=== PATIENT | female | born 1950 | race Caucasian/White ===

== ENCOUNTER 2019-01-10 12:11 | Emergency (ER) | payer MEDICARE ==
[2019-01-10] MEDS ORDERED: Nitroglycerin 50 MG/250 ML BOT 250 ML ONE (12:27)
[2019-01-10 12:35] LABS: #Basophils 0.1 thou/uL (0.0-0.2); #Eosinphils 0.3 thou/uL (0.0-0.7); #Lymphocytes 2.6 thou/uL (1.20-3.40); #Monocytes 0.5 thou/uL (0.11-0.59); #Neutrophils 3.1 thou/uL (1.40-6.50); %Basophils 1.3 % (0.0-1.0); %Eosinophils 4.1 % (0.0-10.0); %Lymphocytes 40.3 % (21.0-51.0); %Monocytes 7.3 % (0.0-10.0); %Neutrophils 46.9 % (42.0-75.0); Hemoglobin 16.3 g/dL (12.0-16.0); Mean Corpuscular HGB CONC 33.9 g/dL (32.0-36.0); Mean Corpuscular Volume 97.3 fL (78.0-98.0); Platelet Count 128 thou/uL (130-400); RBC Distribution Width 13.5 % (11.5-14.5); Red Blood Cell (RBC) Count 4.94 mill/uL (4.20-5.40); White Blood Cell (WBC) Count 6.5 thou/uL (4.8-10.8)
[2019-01-10] MEDS ORDERED: Aspirin Chewable 81 MG TAB ONE (12:40)
[2019-01-10] MEDS ORDERED: diphenhydrAMINE 50 MG/ML VIAL ONE (12:40)
[2019-01-10] MEDS ORDERED: Fentanyl 100 MCG/2 ML VIAL ONE (12:40)
[2019-01-10 12:52] LABS: ALT (SGPT) 27 U/L (8-55); AST (SGOT) 35 U/L (5-34); Albumin 3.7 g/dL (3.4-4.8); Alkaline Phosphatase 95 U/L (40-150); Anion Gap 11 mmol/L (10-20); BUN (Urea Nitrogen) 16 mg/dL (9.8-20.1); Bilirubin, Total 0.6 mg/dL (0.2-1.2); Calc. Creatinine Clearance 0 mL/min (70-130); Calcium 9.3 mg/dL (7.8-10.44); Carbon Dioxide 25 mmol/L (23-31); Chloride 110 mmol/L (98-107); Estimated GFR-MDRD 49; Globulin 3.2 g/dL (2.4-3.5); Glucose 84 mg/dL (80-115); Lipase 76 U/L (8-78); Protein, Total 6.9 g/dL (6.0-8.3); Sodium 142 mmol/L (136-145)
[2019-01-10] MEDS ORDERED: Heparin 25,000 units/D5W 500 ML ONE (13:45)
[2019-01-10] MEDS ORDERED: Heparin 5,000 UNITS/ML VIAL ONE (13:45)
[2019-01-10 13:56] LABS: PTT 28.1 SEC (22.9-36.1); Prothrombin Time 12.9 SEC (12.0-14.7)
--- NOTE | 2019-01-10 18:53 | CT ---
CT AORTIC DISSECTION PROTOCOL 01/10/19 CT of the chest and abdomen was done to display the entire aorta. Contrast was withheld due to a jeannette re allergy to iodine. Axial slices were initially acquired. Then coronal and sagittal reconstructions were done. The scans cover an area from the apices of the lungs through the bifurcation of the aorta into the upper pelvis. There is an infrarenal abdominal aortic aneurysm. It starts just below the level of the renal arterie s and extends to the bifurcation. It is 4 cm in maximal AP diameter. There is no evidence of leakage. No free fluid was seen in the abdomen. The thoracic part of the aorta appears normal. The CT thorax portion of this exam shows no dilation of the thoracic aorta. There is some faint calci fication in the patient's LAD. No pericardial fluid was seen. There is no mediastinal mass or adenopa thy. No pulmonary infiltrate or effusion was seen. The abdominal part of the CT shows the liver, spleen, pancreas, and kidneys to show no acute finding within the limitations of a noncontrast study. There is a curious 3.4 cm ovoid density adjacent to an d above the left adrenal gland and medial to the spleen. It is difficult to tell its origin, but it m ay actually be an ectopic piece of splenic tissue rather than attached to the adrenal gland. Given it s smooth nature, I fell its significance is probably low. The patient's gallbladder is rather large m easuring 9.5 cm in length. No stones, wall thickening, or inflammatory change was seen around it. The bowel was unremarkable. There was no sign of bowel distention, inflammatory change or wall thicke markie. No free air or free fluid was seen. CT goes into the upper pelvis but not the deep pelvis. Ther e were no abnormalities of concern in the area scanned. IMPRESSION: 1. 4 cm infrarenal abdominal aortic aneurysm with no sign of leakage. 2. No acute thoracic changes. No evidence of aortic disease elsewhere or aortic dilation elsewhe re. 3. Some calcification in the LAD. 4. Enlargement of the gallbladder which may or may not be significant. Findings discussed with Dr. Laboy at 1310 on 01/10/19. POS: HOME
== END 2019-01-10 14:59 | disposition short-term general hospital (02) ==
LOC: BURERS 12:11
DX: I24.9 Acute ischemic heart disease, unspecified (principal); I10 Essential (primary) hypertension; R79.89 Other specified abnormal findings of blood chemistry; E66.9 Obesity, unspecified; F32.9 Major depressive disorder, single episode, unspecified; F17.210 Nicotine dependence, cigarettes, uncomplicated; Z79.899 Other long term (current) drug therapy
CPT/HCPCS: 71250; 74150; 80053; 83690; 84484; 85025; 85379; 85610; 85730; 93005; 94760; 96365; 96366; 96368; 96375; J1200; J1644; J3010

== ENCOUNTER 2019-02-14 09:09 | Emergency (ER) | payer MEDICARE | END 2019-02-14 10:06 | disposition home or self-care (01) | LOC: BURERS 09:09 | DX: L02.214 Cutaneous abscess of groin (principal); I10 Essential (primary) hypertension; E66.9 Obesity, unspecified; I34.1 Nonrheumatic mitral (valve) prolapse; J45.909 Unspecified asthma, uncomplicated; F17.210 Nicotine dependence, cigarettes, uncomplicated; F32.9 Major depressive disorder, single episode, unspecified; Z79.899 Other long term (current) drug therapy | CPT/HCPCS: 99282 ==

== ENCOUNTER 2019-09-30 09:04 | Emergency (ER) | payer MEDICARE ==
[2019-09-30 09:54] LABS: INR-International Normal Ratio 1.1
[2019-09-30 09:55] LABS: PTT 36.1 SEC (22.9-36.1)
[2019-09-30 10:05] LABS: ALT (SGPT) 28 U/L (8-55); AST (SGOT) 26 U/L (5-34); Albumin 3.3 g/dL (3.4-4.8); Alkaline Phosphatase 144 U/L (40-110); Anion Gap 14 mmol/L (10-20); BUN (Urea Nitrogen) 9 mg/dL (9.8-20.1); Bilirubin, Total 0.8 mg/dL (0.2-1.2); Calc. Creatinine Clearance 0 mL/min (70-130); Calcium 9.1 mg/dL (7.8-10.44); Carbon Dioxide 24 mmol/L (23-31); Chloride 105 mmol/L (98-107); Estimated GFR-MDRD 52; Globulin 3.5 g/dL (2.4-3.5); Glucose 124 mg/dL (80-115); Lipase 39 U/L (8-78); Potassium 3.3 mmol/L (3.5-5.1); Protein, Total 6.8 g/dL (6.0-8.3); Sodium 140 mmol/L (136-145)
[2019-09-30 10:12] LABS: Hemoglobin 12.3 g/dL (12.0-16.0); Mean Corpuscular HGB CONC 32.6 g/dL (32.0-36.0); Mean Corpuscular Hemoglobin 32.1 pg (27.0-31.0); Mean Corpuscular Volume 98.3 fL (78.0-98.0); Mean Platelet Volume 7.6 fL (7.4-10.4); Platelet Count 165 thou/uL (130-400); RBC Distribution Width 13.3 % (11.5-14.5); Red Blood Cell (RBC) Count 3.84 mill/uL (4.20-5.40); White Blood Cell (WBC) Count 10.2 thou/uL (4.8-10.8)
[2019-09-30] MEDS ORDERED: Pantoprazole 40 MG VIAL ONE (10:17)
[2019-09-30 10:33] LABS: Eosinophils 1 % (0-10); Lymphocytes 13 % (21-51); MDiff Complete? YES; Monocytes 13 % (0-10); Neutrophil 73 % (42-75); Platelet Morphology Comment Appears Adequate; RBC Morphology Normal
[2019-09-30 10:48] LABS: Bilirubin Negative (Negative); Blood, Urine Negative (Negative); Clarity Turbid (Clear); Glucose, Urine (Dipstick) Negative (Negative); Leukocyte Negative (Negative); Nitrite Negative (Negative); Protein, Urine (Dipstick) Negative (Neg-Trace)
[2019-09-30] MEDS ORDERED: Fentanyl 100 MCG/2 ML VIAL ONE (11:21)
--- NOTE | 2019-09-30 15:18 | ULT ---
RIGHT UPPER QUADRANT ULTRASOUND: Date: 09/30/19 Liver is large, measuring 16.5 cm in oblique sagittal length. No dilated ducts or masses detected. Th e gallbladder is distended, measuring nearly 10.0 cm in length. The wall was 2.8 mm in thickness, whi ch seems a bit increased considering the degree of distention present. No gallstones shown. The commo n bile duct is borderline in size at 6 mm in width. The visible portions of the pancreas are unremark able. No mass or hydronephrosis seen in the right kidney which measured 8.1 cm long. IMPRESSION: 1. Distended gallbladder with possible mild wall thickening, but no stones seen. A HIDA scan could b e helpful in assessing function. 2. Borderline size of common bile duct. 3. Mild hepatomegaly. Findings discussed with Dr. Laboy at 1105 hours on 09/30/19. CODE CR. POS: HOME
--- NOTE | 2019-09-30 15:20 | CT ---
CT ABDOMEN AND PELVIS WITHOUT CONTRAST: 09/30/2019 HISTORY: TECHNIQUE: A spiral CT of the abdomen and pelvis was performed for evaluation of epigastric pain. A noncontrast study was done due to an iodine allergy. Some oral contrast was used. FINDINGS: The lung bases are clear. There is a small hiatal hernia and some retained contrast in the lower esop hagus. The liver is somewhat large and its margins are very nodular, suggesting cirrhosis. The spleen is normal in size. The gallbladder is quite large, measuring about 10 cm in length. I cannot confirm any stones within it. The kidneys show no mass or hydronephrosis within the limitations of a noncont rast study. There is a known lower abdominal aortic aneurysm with an internal stent. It measures 5 cm in diameter, similar to before. The bowel shows no distention or thickening. There is no free air or free fluid. CT of the pelvis shows no pelvic masses, fluid collections or inflammatory changes. Prior surgery has been done in the lower lumbar spine. IMPRESSION: 1. Very large gallbladder which has increased in size since the prior study of 09/24/2019. A HIDA sca n might be useful to test function. 2. Mildly enlarged but nodular liver. Cirrhosis is assumed. 3. Small hiatal hernia. 4. A 5 cm infrarenal abdominal aortic aneurysm, similar to the prior study. POS: HOME
--- NOTE | 2019-09-30 15:45 | RAD ---
AP PORTABLE CHEST: 09/30/2019 0949 HOURS COMPARISON: 07/30/2019 FINDINGS: The cardiac size is the same. There is no vascular congestion, edema or pleural effusion. No lobar pu lmonary infiltrate is seen. Prominence of the ascending aorta today is probably due to the patient be ing turned to the side slightly. IMPRESSION: Allowing for differences in positioning there are probably no acute findings. POS: HOME
== END 2019-09-30 12:10 | disposition short-term general hospital (02) ==
LOC: BURERS 09:04
DX: R10.11 Right upper quadrant pain (principal); R10.817 Generalized abdominal tenderness; F32.9 Major depressive disorder, single episode, unspecified; F17.210 Nicotine dependence, cigarettes, uncomplicated; E66.9 Obesity, unspecified
CPT/HCPCS: 36415; 51701; 71045; 74176; 76705; 80053; 81003; 83690; 84484; 85025; 85610; 85730; 87040; 93005; 94760; 96374; 96375; A4353; C9113; J3010

== ENCOUNTER 2020-01-26 16:24 | Emergency (ER) | payer MEDICARE ==
[2020-01-26] MEDS ORDERED: Ondansetron PF 4 MG/2 ML Vial ONE (16:51)
[2020-01-26 16:56] LABS: #Basophils 0.1 thou/uL (0.0-0.2); #Eosinphils 0.3 thou/uL (0.0-0.7); #Monocytes 1.2 thou/uL (0.11-0.59); #Neutrophils 5.4 thou/uL (1.40-6.50); %Basophils 0.7 % (0.0-1.0); %Eosinophils 2.5 % (0.0-10.0); %Lymphocytes 30.3 % (21.0-51.0); %Neutrophils 54.4 % (42.0-75.0); Hemoglobin 14.4 g/dL (12.0-16.0); Mean Corpuscular HGB CONC 32.4 g/dL (32.0-36.0); Mean Corpuscular Hemoglobin 30.1 pg (27.0-31.0); Mean Corpuscular Volume 92.9 fL (78.0-98.0); Platelet Count 188 thou/uL (130-400); RBC Distribution Width 13.9 % (11.5-14.5); Red Blood Cell (RBC) Count 4.79 mill/uL (4.20-5.40); White Blood Cell (WBC) Count 9.9 thou/uL (4.8-10.8)
[2020-01-26 17:11] LABS: ALT (SGPT) 30 U/L (8-55); AST (SGOT) 50 U/L (5-34); Albumin 3.4 g/dL (3.4-4.8); Alkaline Phosphatase 146 U/L (40-110); Anion Gap 16 mmol/L (10-20); BUN (Urea Nitrogen) 15 mg/dL (9.8-20.1); Bilirubin, Total 0.7 mg/dL (0.2-1.2); Calc. Creatinine Clearance 0 mL/min (70-130); Calcium 8.8 mg/dL (7.8-10.44); Carbon Dioxide 21 mmol/L (23-31); Chloride 107 mmol/L (98-107); Estimated GFR-MDRD 35; Glucose 102 mg/dL (83-110); Lipase 42 U/L (8-78); Magnesium 1.9 mg/dL (1.6-2.6); Potassium 3.2 mmol/L (3.5-5.1); Protein, Total 6.4 g/dL (6.0-8.3); Sodium 141 mmol/L (136-145)
--- NOTE | 2020-01-26 17:49 | RAD ---
PORTABLE CHEST: DATE: 01-26-2020 Comparison: 10-02-19 FINDINGS: The heart remains normal in size and the lungs are clear. No infiltrate or effusion was seen. There i s no vascular congestion or edema. The aorta is mildly ectatic and tortuous. IMPRESSION: No acute thoracic finding. POS: HOME
== END 2020-01-26 18:00 | disposition short-term general hospital (02) ==
LOC: BURERS 16:24
DX: A09 Infectious gastroenteritis and colitis, unspecified (principal); I95.9 Hypotension, unspecified; E66.9 Obesity, unspecified; I67.1 Cerebral aneurysm, nonruptured; I34.1 Nonrheumatic mitral (valve) prolapse; I48.91 Unspecified atrial fibrillation; F32.9 Major depressive disorder, single episode, unspecified; Z87.891 Personal history of nicotine dependence
CPT/HCPCS: 71045; 80053; 83605; 83690; 83735; 84484; 85025; 93005; 96361; 96374; J2405